=== PATIENT | male | born 1945 | race Caucasian/White ===

== ENCOUNTER → 2017-10-27 | Outpatient (CLI) | payer MEDICARE ==
[~2017-10-27] MED LIST: ALBU8I INH; AZIT250T43 PO; CALC600T44 PO; CEFD300C PO; CETI5SOL PO; CHOL50006 PO; FLUN25I; FOSA70TA PO; MELA10TA3 PO; METR0.752; PRAV40 PO; PRED10 PO; PRED20 PO; PROS5TAB2 PO; SPIRCAP INH; SUMA50 PO; SYMB160A INH; Z.0.OXYGEN INH; [UNRECOGNIZED DRUG - CODE] PO
--- NOTE | 2017-11-04 10:26 | RSPPFT ---
DATE OF PROCEDURE: 10/27/17 COMMENTS: Spirometry shwos FVC of 2.6 at 68% of predicted, FEV1 of 1.1 at 37%, FEV1/FVC ratio is decreased. Flow is decreased at FEF 25, FEF 50, FEF 75 and FEF 25-75. There is no significant response after bronchodilator treatment. Lung volumes show residual volume is increased. TLC is increased. Diffusion capacity is decreased. Flow volume loop indicates an obstructive pattern. Room air arterial blood gases show pH of 7.44, PCO2 of 40, PO2 of 66, BiCarb of 27 and O2 Saturation at 92%. IMPRESSION: 1. Severe obstructive lung disease. 2. No response after bronchodilator treatment. 3. Lung volumes show air trapping and hyperinflation. 4. Diffusion capacity is decreased. 5. Blood gases show presence of hypoxia.
== END ==
LOC: PHRSP 09:51
PROVIDERS: ATTEND Specialist
DX: J44.9 Chronic obstructive pulmonary disease, unspecified (principal)
CPT/HCPCS: 36600; 82805; 94060; 94726; 94729